=== PATIENT | male | born 1990 | race Caucasian/White ===

== ENCOUNTER 2023-01-07 15:36 | Emergency (ER) | payer BC ==
[~2023-01-07] VITALS: Ht 175.3 cm; Wt 88.5 kg
[2023-01-07] MEDS ORDERED: CIPR7.5D OT (19:20)
[2023-01-07] MEDS ORDERED: KETOROLAC 30MG VIAL (30MG/ML) IM ONE (19:30)
[2023-01-07 19:31] VITALS: BP 139/69
== END 2023-01-07 19:56 | disposition home or self-care (01) ==
LOC: EDH 15:36
DX: H60.91 Unspecified otitis externa, right ear (principal)
CPT/HCPCS: 99284; 96372; J1885